=== PATIENT | male | born 1990 | race African-American/Black ===

== ENCOUNTER 2022-04-09 13:22 | Emergency (ER) | payer BC ==
[~2022-04-09] VITALS: Ht 180.3 cm; Wt 93.0 kg
[2022-04-09] MEDS ORDERED: KETOROLAC 30MG/ML VIAL IM ONE (16:15)
[2022-04-09] MEDS ORDERED: NAPR-1176 MT (16:23)
[2022-04-09 16:26] VITALS: BP 154/93
== END 2022-04-09 16:40 | disposition home or self-care (01) ==
LOC: ER 13:22
DX: S60.222A Contusion of left hand, initial encounter (principal); S60.221A Contusion of right hand, initial encounter; M79.641 Pain in right hand; V49.49XA Driver injured in collision with other motor vehicles in traffic accident, initial encounter; Y93.89 Activity, other specified; Y92.89 Other specified places as the place of occurrence of the external cause; Y99.8 Other external cause status
CPT/HCPCS: 96372; 99283; J1885